=== PATIENT | female | born 1940 | race African-American/Black ===

== ENCOUNTER 2019-07-12 09:13 | Inpatient (IN) | payer OTHER, MEDICAID ==
[~2019-07-12] VITALS: Ht 170.2 cm; Wt 103.9 kg
[2019-07-12] MEDS ORDERED: IPRATROPIUM BROMIDE (0.02%) 0.5MG/2.5ML NEB HHN STA (09:41)
[2019-07-12] MEDS ORDERED: ALBUTEROL (0.083%) 2.5MG/3ML NEB HHN STA (09:41)
[2019-07-12] MEDS ORDERED: METHYLPREDNISOLONE SOD SUCC 125 MG/2 ML VIAL IV STA (09:41)
[2019-07-12 10:17] LABS: EOSINOPHILS % 1.5 % (0.0-5.0); HEMATOCRIT. 40.7 % (36.0-48.0); HEMOGLOBIN. 13.3 g/dL (12.0-16.0); MEAN CORPUSCULAR VOLUME 85.7 fL (81.0-99.0); MEAN PLATELET VOLUME 7.4 fl (7.4-10.4); NEUTROPHILS % 79.5 % (40.0-76.0); PLATELET 370 x1000/uL (130-400); RED BLOOD CELL COUNT 4.75 mill/uL (4.2-5.4); RED CELL DISTRIBUTION WIDTH 15.4 % (11.6-14.6)
[2019-07-12 10:27] LABS: CHLORIDE 108 mEq/L (98-107)
[2019-07-12] MEDS ORDERED: SODIUM CHLORIDE 0.9% 1,000 ML IV ONE (12:46)
[2019-07-12] MEDS ORDERED: MECLIZINE 25MG TABLET PO ONE (13:00)
[2019-07-12] MEDS ORDERED: SODIUM CHLORIDE 0.9% 1,000 ML IV SCH (13:47)
[2019-07-12] MEDS ORDERED: CLONIDINE 0.1MG TABLET PO PRN (14:00)
[2019-07-12] MEDS ORDERED: ACETAMINOPHEN 325MG TABLET PO PRN (14:00)
[2019-07-12] MEDS ORDERED: DIPHENHYDRAMINE 50MG/ML VIAL IV PRN (14:00)
[2019-07-12] MEDS ORDERED: HYDROCODONE/ACETAMINOPHEN 5/325MG TABLET PO PRN (14:00)
[2019-07-12 14:52] LABS: PHOSPHORUS 3.3 mg/dL (2.5-4.9)
[2019-07-12] MEDS: ONDANSETRON HCL 4MG/2ML INJ IV PRN (21:33)
[2019-07-13 07:49] LABS: BASOPHILS % 1.3 % (0.0-2.0); HEMATOCRIT. 37.2 % (36.0-48.0); HEMOGLOBIN. 12.2 g/dL (12.0-16.0); LYMPHOCYTES % 22.4 % (20.0-50.0); MEAN CORPUSCULAR HEMOGLOBIN 27.9 pg (28.0-32.0); MEAN CORPUSCULAR VOLUME 84.8 fL (81.0-99.0); MEAN PLATELET VOLUME 7.3 fl (7.4-10.4); MONOCYTES % 8.8 % (2.0-8.0); NEUTROPHILS % 64.5 % (40.0-76.0); PLATELET 349 x1000/uL (130-400); RED BLOOD CELL COUNT 4.39 mill/uL (4.2-5.4); RED CELL DISTRIBUTION WIDTH 15.2 % (11.6-14.6)
[2019-07-13 07:58] LABS: CHLORIDE 111 mEq/L (98-107)
[2019-07-13 08:07] LABS: LDL CHOLESTEROL 112 mg/dL (5-100)
[2019-07-13 08:09] LABS: HDL CHOLESTEROL 48 mg/dL (40-59)
[2019-07-13 09:49] LABS: BG BASE EXCESS 0.1 mmol/L (-2.0-2.0); BG CARBOXYHEMOGLOBIN 0.5 % (0.5-1.5); BG DEOXYHEMOGLOBIN 5.7 % (0.0-5.0); BG FRACTION INSPIRED OXYGEN 21; BG METHEMOGLOBIN 0.3 % (0.0-1.5); BG OXYGEN SATURATION 94.3 % (92.0-98.5); BG OXYHEMOGLOBIN 93.5 % (94.0-97.0); BG PCO2 36.6 mmHg (35.0-45.0); BG PH 7.435 (7.350-7.450); BG PO2 70.5 mmHg (75.0-100.0); BG SAMPLE SITE RIGHT RADIAL; BG TOTAL HEMOGLOBIN 13.4 g/dL (12.0-18.0); BG VENT MODE ROOM AIR
[2019-07-13] MEDS ORDERED: IPRATROPIUM/ALBUTEROL 0.5-3(2.5)MG/3ML NEB HHN PRN (15:00)
[2019-07-13] MEDS ORDERED: LORAZEPAM 2MG/ML CPJ IV PRN (15:00)
[2019-07-13] MEDS ORDERED: BISACODYL 10MG SUPP PR PRN (15:00)
[2019-07-13] MEDS ORDERED: MECLIZINE 25MG TABLET PO NR (15:15)
[2019-07-13 16:00] VITALS: BP_SYST 134; BP_DIAS 64; BP_DIAS 68
[2019-07-13] MEDS: METHYLPREDNISOLONE SOD SUCC 40 MG/ML VIAL IV SCH (16:58)
[2019-07-13] MEDS: FAMOTIDINE 20MG/2ML VIAL IV SCH (16:58)
[2019-07-13] MEDS: SODIUM CHLORIDE 0.45% 1,000 ML IV SCH (16:59)
[2019-07-13] MEDS ORDERED: POTASSIUM CHLORIDE INJ 40 MEQ in DEXT 5% WATER 500 ML IV NR (18:00)
[2019-07-13 19:10] LABS: PROTHROMBIN TIME 10.2 sec (9.6-11.0)
[2019-07-13 20:00] VITALS: BP_SYST 137; BP_SYST 164; BP_DIAS 67; BP_DIAS 86
[2019-07-13] MEDS ORDERED: AMLO5TAB4 PO (21:53)
[2019-07-13] MEDS ORDERED: ALBU6.7H11 INH (21:53)
[2019-07-13] MEDS ORDERED: METO-539 PO (21:53)
[2019-07-13] MEDS: MECLIZINE 25MG TABLET PO SCH (21:56)
[2019-07-13] MEDS: BUDESONIDE 0.5MG/2ML NEB HHN SCH (22:31)
[2019-07-13] MEDS: IPRATROPIUM/ALBUTEROL 0.5-3(2.5)MG/3ML NEB HHN SCH (22:31)
[2019-07-14] VITALS (7 sets, daily range): BP systolic 102–170; BP diastolic 55–95
[2019-07-14] MEDS ORDERED: DEXTROSE 50% WATER 50ML SYRINGE IV PRN (00:30)
[2019-07-14] MEDS: SODIUM CHLORIDE 0.45% 1,000 ML IV SCH ×3 (02:34→22:15)
[2019-07-14] MEDS: IPRATROPIUM/ALBUTEROL 0.5-3(2.5)MG/3ML NEB HHN SCH ×4 (02:40→22:27)
[2019-07-14] MEDS: MECLIZINE 25MG TABLET PO SCH ×3 (06:30→21:20)
[2019-07-14] MEDS: BLOOD SUGAR DIAGNOSTIC STRIP TEST SCH ×4 (06:31→21:16)
[2019-07-14] MEDS: INSULIN LISPRO 100 UNITS/ML SUBCUT SCH ×4 (07:24→21:00)
[2019-07-14] MEDS: METOPROLOL TARTRATE 50MG TABLET PO SCH ×2 (08:56→21:20)
[2019-07-14] MEDS: METHYLPREDNISOLONE SOD SUCC 40 MG/ML VIAL IV SCH (08:56)
[2019-07-14] MEDS: FAMOTIDINE 20MG/2ML VIAL IV SCH (08:56)
[2019-07-14] MEDS: AMLODIPINE 5MG TABLET PO SCH ×2 (08:56→21:19)
[2019-07-14] MEDS: ONDANSETRON HCL 4MG/2ML INJ IV PRN (09:11)
[2019-07-14 09:27] LABS: HEMATOCRIT 38.1 % (36.0-48.0); HEMOGLOBIN 12.6 g/dL (12.0-16.0); MEAN CORPUSCULAR HEMOGLOBIN 28.3 pg (28.0-32.0); MEAN CORPUSCULAR VOLUME 85.3 fL (81.0-99.0); PLATELET 360 x1000/uL (130-400); RED BLOOD CELL COUNT 4.46 mill/uL (4.2-5.4); RED CELL DISTRIBUTION WIDTH 15.4 % (11.6-14.6)
[2019-07-14 09:33] LABS: CHLORIDE 109 mEq/L (98-107)
[2019-07-14] MEDS: BUDESONIDE 0.5MG/2ML NEB HHN SCH ×2 (11:50→22:27)
[2019-07-15] VITALS: BP 142/66
[2019-07-15 04:00] VITALS: BP 136/65
[2019-07-15] MEDS: IPRATROPIUM/ALBUTEROL 0.5-3(2.5)MG/3ML NEB HHN SCH ×3 (04:30→12:52)
[2019-07-15] MEDS: MECLIZINE 25MG TABLET PO SCH ×2 (06:11→14:52)
[2019-07-15] MEDS: BLOOD SUGAR DIAGNOSTIC STRIP TEST SCH ×2 (07:40→12:20)
[2019-07-15] MEDS: INSULIN LISPRO 100 UNITS/ML SUBCUT SCH ×2 (08:10→12:20)
[2019-07-15] MEDS: SODIUM CHLORIDE 0.45% 1,000 ML IV SCH (08:15)
[2019-07-15 08:28] LABS: HEMATOCRIT 38.2 % (36.0-48.0); HEMOGLOBIN 12.4 g/dL (12.0-16.0); MEAN CORPUSCULAR HEMOGLOBIN 27.7 pg (28.0-32.0); MEAN CORPUSCULAR VOLUME 85.8 fL (81.0-99.0); PLATELET 368 x1000/uL (130-400); RED BLOOD CELL COUNT 4.45 mill/uL (4.2-5.4); RED CELL DISTRIBUTION WIDTH 15.3 % (11.6-14.6)
[2019-07-15 08:33] LABS: CHLORIDE 108 mEq/L (98-107)
[2019-07-15] MEDS: AMLODIPINE 5MG TABLET PO SCH (08:44)
[2019-07-15] MEDS: METOPROLOL TARTRATE 50MG TABLET PO SCH (08:44)
[2019-07-15] MEDS: FAMOTIDINE 20MG/2ML VIAL IV SCH (08:53)
[2019-07-15] MEDS: METHYLPREDNISOLONE SOD SUCC 40 MG/ML VIAL IV SCH (08:54)
[2019-07-15] MEDS: BUDESONIDE 0.5MG/2ML NEB HHN SCH (09:00)
[2019-07-15 12:00] VITALS: BP 154/90
[2019-07-15 16:00] VITALS: BP 112/69
[2019-07-15 18:24] VITALS: BP 115/71
[2019-07-15 20:00] VITALS: BP_SYST 127; BP_SYST 131; BP_SYST 141; BP_DIAS 56; BP_DIAS 67; BP_DIAS 72
[2019-07-15] MEDS ORDERED: FAMOTIDINE 40MG TABLET PO SCH (21:00)
== END 2019-07-15 20:46 | disposition hospice, home (50) | DRG 190 ==
LOC: ER 09:13 → 7WST 13:42 → SUPCPDRO 07-13 11:46 → ENRESERV 07-13 14:27
PROVIDERS: ADMIT Internal Medicine; ATTEND Internal Medicine
DX: J44.1 Chronic obstructive pulmonary disease with (acute) exacerbation (principal); I50.33 Acute on chronic diastolic (congestive) heart failure; I65.21 Occlusion and stenosis of right carotid artery; E87.6 Hypokalemia; E86.0 Dehydration; R09.02 Hypoxemia; M10.9 Gout, unspecified; I11.0 Hypertensive heart disease with heart failure; Z87.891 Personal history of nicotine dependence; Z88.8 Allergy status to other drugs, medicaments and biological substances; Z90.710 Acquired absence of both cervix and uterus; Z90.722 Acquired absence of ovaries, bilateral; R42 Dizziness and giddiness
CPT/HCPCS: 36415; 36600; 70551; 71045; 80048; 80053; 80061; 82375; 82805; 82962; 83735; 83880; 84100; 84443; 84484; 85025; 85027; 87804; 93005; 93306; 93880; 93970; 94640; 96374; 97162; 99285; C1893; J2405; J2920; J2930; J3480; J3490; J7030; J7060; J7626; J8597

== ENCOUNTER 2020-09-27 10:40 | Inpatient (IN) | payer MEDICARE ==
[~2020-09-27] VITALS: Ht 165.1 cm; Wt 111.2 kg
[~2020-09-27 10:40] MED LIST: ALBU6.7H11 INH; AMLO5TAB4 PO; METO-539 PO
[2020-09-27] MEDS ORDERED: METHYLPREDNISOLONE SOD SUCC 125 MG/2 ML VIAL IV STA (11:05)
[2020-09-27] MEDS ORDERED: IPRATROPIUM BROMIDE (0.02%) 0.5MG/2.5ML NEB HHN STA (11:05)
[2020-09-27] MEDS ORDERED: MAGNESIUM 2 G PREMIX 50 ML IV ONE (11:15)
[2020-09-27 11:27] LABS: BASOPHILS % 1.2 % (0.0-2.0); EOSINOPHILS % 4.2 % (0.0-5.0); HEMATOCRIT. 42.2 % (36.0-48.0); HEMOGLOBIN. 13.5 g/dL (12.0-16.0); LYMPHOCYTES % 41.3 % (20.0-50.0); MEAN CORPUSCULAR HEMOGLOBIN 27.7 pg (28.0-32.0); MEAN CORPUSCULAR VOLUME 86.4 fL (81.0-99.0); MEAN PLATELET VOLUME 7.5 fl (7.4-10.4); MONOCYTES % 9.6 % (2.0-8.0); NEUTROPHILS % 43.7 % (40.0-76.0); PLATELET 390 x1000/uL (130-400); RED BLOOD CELL COUNT 4.88 mill/uL (4.2-5.4); RED CELL DISTRIBUTION WIDTH 15.5 % (11.6-14.6)
[2020-09-27 11:30] LABS: CHLORIDE 107 mEq/L (98-107)
[2020-09-27] MEDS ORDERED: ALBUTEROL (0.083%) 2.5MG/3ML NEB HHN SCH (11:30)
[2020-09-27] MEDS ORDERED: LIDOCAINE HCL/EPINEPHRINE 1%-EPI 1:100,000 10 ML VIAL IJ ONE (12:00)
[2020-09-27] MEDS ORDERED: BACITRACIN ZINC OINT UDPKT TOP ONE (12:00)
[2020-09-27] MEDS ORDERED: CEFTRIAXONE 1 G PREMIX 50 ML IV ONE (13:15)
[2020-09-27] MEDS ORDERED: SODIUM CHLORIDE 0.9% 1,000 ML IV ONE (13:15)
[2020-09-27] MEDS ORDERED: AZITHROMYCIN 500 MG in DEXT 5% WATER 250 ML IV ONE (13:15)
[2020-09-27 13:42] LABS: PROTHROMBIN TIME 10.3 sec (9.6-11.0)
[2020-09-27] MEDS ORDERED: ACETAMINOPHEN 650MG/20.3ML UDC GT PRN (14:45)
[2020-09-27] MEDS ORDERED: NA PHOS,M-B/NA PHOS,DI-BA ENEMA 118ML PR PRN (14:45)
[2020-09-27] MEDS ORDERED: DOCUSATE SODIUM 100MG CAPSULE PO PRN (14:45)
[2020-09-27] MEDS ORDERED: ACETAMINOPHEN 650MG SUPP PR PRN (14:45)
[2020-09-27] MEDS ORDERED: LORAZEPAM 0.5MG TABLET PO PRN (14:45)
[2020-09-27] MEDS ORDERED: MAGNESIUM/ALUMINUM HYDROXIDE/SIMETHICONE 30ML UDC PO PRN (14:45)
[2020-09-27] MEDS ORDERED: GUAIFENESIN 200MG/10ML SUGAR FREE UDC PO PRN (14:45)
[2020-09-27] MEDS: PIPERACILLIN/TAZ 3.375G PREMIX 50 ML IV SCH ×2 (15:00→23:05)
[2020-09-27 15:13] LABS: BG BASE EXCESS -3.6 mmol/L (-2.0-2.0); BG CARBOXYHEMOGLOBIN 0.3 % (0.5-1.5); BG DEOXYHEMOGLOBIN 4.7 % (0.0-5.0); BG FRACTION INSPIRED OXYGEN 28; BG HCO3 ACT 22.1 mmol/L (22.0-26.0); BG METHEMOGLOBIN 0.1 % (0.0-1.5); BG OXYGEN SATURATION 95.3 % (92.0-98.5); BG OXYHEMOGLOBIN 94.9 % (94.0-97.0); BG PCO2 42.1 mmHg (35.0-45.0); BG PH 7.337 (7.350-7.450); BG PO2 78.8 mmHg (75.0-100.0); BG SAMPLE SITE RIGHT RADIAL; BG TOTAL HEMOGLOBIN 12.7 g/dL (12.0-18.0); BG VENT MODE NASAL CANNULA
[2020-09-27] MEDS: MORPHINE SULFATE 2 MG/ML CPJ (NOT FOR IM USE) IV PRN ×2 (15:14→19:46)
[2020-09-27] MEDS: ONDANSETRON HCL 4MG/2ML INJ IV PRN (15:15)
[2020-09-27] MEDS: FAMOTIDINE 20MG/2ML VIAL IV SCH (15:15)
[2020-09-27] MEDS: HYDROCODONE/ACETAMINOPHEN 5/325MG TABLET PO PRN ×2 (15:16→23:12)
[2020-09-27] MEDS: METHYLPREDNISOLONE SOD SUCC 40 MG/ML VIAL IV SCH (16:51)
[2020-09-27] MEDS: IPRATROPIUM/ALBUTEROL 0.5-3(2.5)MG/3ML NEB HHN SCH (20:10)
[2020-09-27 22:51] LABS: CREATINE KINASE 494 IU/L (26-192)
[2020-09-28] VITALS (82 sets, daily range): BP systolic 107–194; BP diastolic 16–141
[2020-09-28] MEDS: MORPHINE SULFATE 2 MG/ML CPJ (NOT FOR IM USE) IV PRN (00:04)
[2020-09-28] MEDS: METHYLPREDNISOLONE SOD SUCC 40 MG/ML VIAL IV SCH ×3 (00:06→15:53)
[2020-09-28] MEDS ORDERED: NOREPINEPHRINE 8MG/250ML PMX 250 ML IV PRN (03:00)
[2020-09-28] MEDS ORDERED: NOREPINEPHRINE 8 MG in DEXTROSE 5% WATER 250 ML IV PRN (03:15)
[2020-09-28 05:45] LABS: CHLORIDE 107 mEq/L (98-107)
[2020-09-28 05:53] LABS: HEMATOCRIT. 38.2 % (36.0-48.0); HEMOGLOBIN. 12.1 g/dL (12.0-16.0); MEAN CORPUSCULAR HEMOGLOBIN 27.2 pg (28.0-32.0); MEAN CORPUSCULAR VOLUME 86.2 fL (81.0-99.0); MEAN PLATELET VOLUME 7.5 fl (7.4-10.4); PLATELET 287 x1000/uL (130-400); RED BLOOD CELL COUNT 4.43 mill/uL (4.2-5.4); RED CELL DISTRIBUTION WIDTH 15.9 % (11.6-14.6)
[2020-09-28 05:57] LABS: CREATINE KINASE MB FRACTION 12.4 ng/mL (0.5-3.6); LDL CHOLESTEROL 107 mg/dL (5-100)
[2020-09-28 05:58] LABS: CREATINE KINASE 819 IU/L (26-192)
[2020-09-28 05:59] LABS: HDL CHOLESTEROL 69 mg/dL (40-59)
[2020-09-28 06:07] LABS: T4 FREE 1.02 ng/dL (0.76-1.46)
[2020-09-28] MEDS: CLONIDINE 0.1MG TABLET PO PRN ×2 (06:07→15:05)
[2020-09-28] MEDS: PIPERACILLIN/TAZOBACTAM 3.375 G in DEXT 5% WATER 100 ML IV SCH ×3 (06:08→17:43)
[2020-09-28] MEDS: ENOXAPARIN 30MG/0.3ML SYR SUBCUT SCH ×2 (08:31→21:44)
[2020-09-28] MEDS: FAMOTIDINE 20MG/2ML VIAL IV SCH (08:31)
[2020-09-28 10:17] LABS: PLATELET ESTIMATE NORMAL
[2020-09-28] MEDS ORDERED: AMLODIPINE 5MG TABLET PO SCH (13:00)
[2020-09-28] MEDS: SODIUM CHLORIDE 0.45% 1,000 ML IV SCH (15:55)
[2020-09-28] MEDS: AMLODIPINE 5MG TABLET PO SCH (16:56)
[2020-09-28] MEDS: IPRATROPIUM/ALBUTEROL 0.5-3(2.5)MG/3ML NEB HHN SCH (21:09)
[2020-09-28 22:31] LABS: CLARITY URINE CLOUDY (CLEAR); COLOR URINE YELLOW (YELLOW); KETONES URINE TRACE (NEGATIVE); LEUKOCYTE ESTERASE URINE NEGATIVE (NEGATIVE); NITRITE URINE NEGATIVE (NEGATIVE); OCCULT BLOOD URINE NEGATIVE (NEGATIVE); PH URINE 5.5 (4.5-8.0); PROTEIN URINE NEGATIVE (NEGATIVE); SPECIFIC GRAVITY URINE 1.024 (1.005-1.030); UROBILINOGEN URINE 0.2 E.U./dL (0.2-1.0)
[2020-09-28] MEDS: HYDRALAZINE HCL 50MG TABLET PO SCH (22:33)
[2020-09-29] VITALS (12 sets, daily range): BP systolic 126–169; BP diastolic 66–115
[2020-09-29] MEDS: PIPERACILLIN/TAZOBACTAM 3.375 G in DEXT 5% WATER 100 ML IV SCH ×4 (00:47→17:36)
[2020-09-29] MEDS: METHYLPREDNISOLONE SOD SUCC 40 MG/ML VIAL IV SCH ×3 (00:47→21:01)
[2020-09-29] MEDS: HYDROCODONE/ACETAMINOPHEN 5/325MG TABLET PO PRN ×2 (01:22→21:01)
[2020-09-29] MEDS: IPRATROPIUM/ALBUTEROL 0.5-3(2.5)MG/3ML NEB HHN SCH ×4 (03:49→21:20)
[2020-09-29] MEDS: HYDRALAZINE HCL 50MG TABLET PO SCH ×3 (05:23→22:18)
[2020-09-29 06:23] LABS: HEMATOCRIT. 35.8 % (36.0-48.0); HEMOGLOBIN. 11.6 g/dL (12.0-16.0); MEAN CORPUSCULAR HEMOGLOBIN 27.5 pg (28.0-32.0); MEAN CORPUSCULAR VOLUME 84.8 fL (81.0-99.0); MEAN PLATELET VOLUME 7.8 fl (7.4-10.4); PLATELET 285 x1000/uL (130-400); RED BLOOD CELL COUNT 4.22 mill/uL (4.2-5.4); RED CELL DISTRIBUTION WIDTH 15.9 % (11.6-14.6)
[2020-09-29 06:26] LABS: CHLORIDE 106 mEq/L (98-107)
[2020-09-29] MEDS: AMLODIPINE 5MG TABLET PO SCH ×2 (10:17→16:46)
[2020-09-29] MEDS: ENOXAPARIN 30MG/0.3ML SYR SUBCUT SCH ×2 (10:17→21:02)
[2020-09-29] MEDS: FAMOTIDINE 20MG/2ML VIAL IV SCH (10:17)
[2020-09-29] MEDS: SODIUM CHLORIDE 0.45% 1,000 ML IV SCH (11:59)
[2020-09-29 17:04] LABS: PLATELET ESTIMATE NORMAL
[2020-09-30] VITALS (12 sets, daily range): BP systolic 133–164; BP diastolic 72–92
[2020-09-30] MEDS: IPRATROPIUM/ALBUTEROL 0.5-3(2.5)MG/3ML NEB NEB PRN (00:18)
[2020-09-30] MEDS: PIPERACILLIN/TAZOBACTAM 3.375 G in DEXT 5% WATER 100 ML IV SCH ×5 (01:14→23:26)
[2020-09-30] MEDS: IPRATROPIUM/ALBUTEROL 0.5-3(2.5)MG/3ML NEB HHN SCH ×3 (03:36→20:28)
[2020-09-30 06:09] LABS: HEMOGLOBIN. 12.2 g/dL (12.0-16.0); MEAN CORPUSCULAR HEMOGLOBIN 27.8 pg (28.0-32.0); MEAN CORPUSCULAR VOLUME 84.4 fL (81.0-99.0); MEAN PLATELET VOLUME 7.6 fl (7.4-10.4); PLATELET 309 x1000/uL (130-400); RED BLOOD CELL COUNT 4.38 mill/uL (4.2-5.4); RED CELL DISTRIBUTION WIDTH 15.4 % (11.6-14.6)
[2020-09-30 06:11] LABS: CHLORIDE 105 mEq/L (98-107)
[2020-09-30] MEDS: HYDRALAZINE HCL 50MG TABLET PO SCH (06:29)
[2020-09-30] MEDS: HYDROCODONE/ACETAMINOPHEN 5/325MG TABLET PO PRN ×2 (06:29→11:23)
[2020-09-30] MEDS: FAMOTIDINE 20MG/2ML VIAL IV SCH (08:25)
[2020-09-30] MEDS: ENOXAPARIN 30MG/0.3ML SYR SUBCUT SCH ×2 (08:25→20:07)
[2020-09-30] MEDS: SODIUM CHLORIDE 0.45% 1,000 ML IV SCH (08:25)
[2020-09-30] MEDS: AMLODIPINE 5MG TABLET PO SCH ×2 (08:25→18:00)
[2020-09-30] MEDS: METHYLPREDNISOLONE SOD SUCC 40 MG/ML VIAL IV SCH ×2 (08:25→20:07)
[2020-09-30] MEDS ORDERED: POTASSIUM CHLORIDE 20MEQ TABLET SR PO NR (10:30)
[2020-09-30 13:07] LABS: PLATELET ESTIMATE NORMAL
[2020-09-30] MEDS: HYDRALAZINE HCL 100MG TABLET PO SCH ×2 (14:44→21:52)
[2020-09-30] MEDS: DIPHENHYDRAMINE 50MG/ML VIAL IV PRN ×2 (16:28→20:08)
[2020-10-01] VITALS (12 sets, daily range): BP systolic 130–177; BP diastolic 59–136
[2020-10-01] MEDS: HYDROCODONE/ACETAMINOPHEN 5/325MG TABLET PO PRN (01:49)
[2020-10-01] MEDS: IPRATROPIUM/ALBUTEROL 0.5-3(2.5)MG/3ML NEB HHN SCH ×4 (02:00→20:39)
[2020-10-01] MEDS: PIPERACILLIN/TAZOBACTAM 3.375 G in DEXT 5% WATER 100 ML IV SCH ×4 (05:41→23:56)
[2020-10-01] MEDS: HYDRALAZINE HCL 100MG TABLET PO SCH ×3 (05:42→22:00)
[2020-10-01 06:36] LABS: HEMOGLOBIN. 12.7 g/dL (12.0-16.0); MEAN CORPUSCULAR HEMOGLOBIN 27.6 pg (28.0-32.0); MEAN CORPUSCULAR VOLUME 85.1 fL (81.0-99.0); MEAN PLATELET VOLUME 7.5 fl (7.4-10.4); PLATELET 359 x1000/uL (130-400); RED BLOOD CELL COUNT 4.59 mill/uL (4.2-5.4); RED CELL DISTRIBUTION WIDTH 15.6 % (11.6-14.6)
[2020-10-01 06:58] LABS: CHLORIDE 106 mEq/L (98-107)
[2020-10-01] MEDS: DIPHENHYDRAMINE 50MG/ML VIAL IV PRN ×3 (07:59→20:03)
[2020-10-01] MEDS ORDERED: LIDOCAINE HCL/PF 1% 2ML VIAL ONE (09:00)
[2020-10-01] MEDS: FAMOTIDINE 20MG/2ML VIAL IV SCH (09:26)
[2020-10-01] MEDS: AMLODIPINE 5MG TABLET PO SCH ×2 (09:26→18:09)
[2020-10-01] MEDS: ENOXAPARIN 30MG/0.3ML SYR SUBCUT SCH ×2 (09:26→21:58)
[2020-10-01] MEDS: METHYLPREDNISOLONE SOD SUCC 40 MG/ML VIAL IV SCH ×2 (09:26→21:57)
[2020-10-01 11:58] LABS: NUCLEATED RED BLOOD CELLS 1 /100 WBC; PLATELET ESTIMATE NORMAL
[2020-10-01] MEDS ORDERED: IOHEXOL-350 100 ML BOTTLE ONE (12:29)
[2020-10-01] MEDS ORDERED: MORPHINE SULFATE 4 MG/ML CPJ (NOT FOR IM USE) IV PRN (15:15)
[2020-10-01] MEDS ORDERED: MIDAZOLAM HCL 2 MG/2 ML VIAL IV PRN (15:15)
[2020-10-01 16:35] LABS: BG BASE EXCESS 1.3 mmol/L (-2.0-2.0); BG CARBOXYHEMOGLOBIN 0.4 % (0.5-1.5); BG DEOXYHEMOGLOBIN 5.2 % (0.0-5.0); BG HCO3 ACT 24.8 mmol/L (22.0-26.0); BG METHEMOGLOBIN 0.3 % (0.0-1.5); BG OXYGEN SATURATION 94.8 % (92.0-98.5); BG OXYHEMOGLOBIN 94.1 % (94.0-97.0); BG PCO2 35.7 mmHg (35.0-45.0); BG PH 7.459 (7.350-7.450); BG PO2 70.6 mmHg (75.0-100.0); BG SAMPLE SITE RIGHT RADIAL; BG TOTAL HEMOGLOBIN 13.5 g/dL (12.0-18.0); BG VENT MODE NASAL CANNULA
[2020-10-01] MEDS ORDERED: MIDAZOLAM HCL 2 MG/2 ML VIAL ONE (20:23)
[2020-10-01] MEDS ORDERED: LIDOCAINE HCL/EPINEPHRINE 1%-EPI 1:100,000 20 ML VIAL INFIL NR (20:30)
[2020-10-01] MEDS: ONDANSETRON HCL 4MG/2ML INJ IV PRN (21:58)
[2020-10-01] MEDS: MORPHINE SULFATE 2 MG/ML CPJ (NOT FOR IM USE) IV PRN (21:59)
[2020-10-02] VITALS (46 sets, daily range): BP systolic 113–199; BP diastolic 58–169
[2020-10-02] MEDS: IPRATROPIUM/ALBUTEROL 0.5-3(2.5)MG/3ML NEB HHN SCH ×5 (01:19→20:38)
[2020-10-02] MEDS: PIPERACILLIN/TAZOBACTAM 3.375 G in DEXT 5% WATER 100 ML IV SCH ×3 (05:05→16:37)
[2020-10-02] MEDS: HYDRALAZINE HCL 100MG TABLET PO SCH (05:17)
[2020-10-02 06:19] LABS: HEMATOCRIT. 39.8 % (36.0-48.0); MEAN CORPUSCULAR HEMOGLOBIN 27.9 pg (28.0-32.0); MEAN CORPUSCULAR VOLUME 85.7 fL (81.0-99.0); MEAN PLATELET VOLUME 7.5 fl (7.4-10.4); PLATELET 366 x1000/uL (130-400); RED BLOOD CELL COUNT 4.64 mill/uL (4.2-5.4)
[2020-10-02 07:40] LABS: PLATELET ESTIMATE NORMAL
[2020-10-02] MEDS: METHYLPREDNISOLONE SOD SUCC 40 MG/ML VIAL IV SCH ×2 (08:30→20:12)
[2020-10-02] MEDS: FAMOTIDINE 20MG/2ML VIAL IV SCH (08:31)
[2020-10-02] MEDS: HYDROCODONE/ACETAMINOPHEN 5/325MG TABLET PO PRN (08:31)
[2020-10-02] MEDS: AMLODIPINE 5MG TABLET PO SCH ×2 (08:31→17:00)
[2020-10-02] MEDS: ENOXAPARIN 30MG/0.3ML SYR SUBCUT SCH ×2 (09:00→20:13)
[2020-10-02 09:20] LABS: BG BASE EXCESS 1.1 mmol/L (-2.0-2.0); BG CARBOXYHEMOGLOBIN 0.4 % (0.5-1.5); BG DEOXYHEMOGLOBIN 4.1 % (0.0-5.0); BG FRACTION INSPIRED OXYGEN 36; BG HCO3 ACT 25.4 mmol/L (22.0-26.0); BG OXYGEN SATURATION 95.9 % (92.0-98.5); BG OXYHEMOGLOBIN 95.5 % (94.0-97.0); BG PCO2 39.4 mmHg (35.0-45.0); BG PH 7.427 (7.350-7.450); BG PO2 81.1 mmHg (75.0-100.0); BG SAMPLE SITE RIGHT RADIAL; BG TOTAL HEMOGLOBIN 13.4 g/dL (12.0-18.0); BG VENT MODE NASAL CANNULA
[2020-10-02 13:18] LABS: BG BASE EXCESS 1.2 mmol/L (-2.0-2.0); BG CARBOXYHEMOGLOBIN 0.3 % (0.5-1.5); BG DEOXYHEMOGLOBIN 0.6 % (0.0-5.0); BG FRACTION INSPIRED OXYGEN 100; BG HCO3 ACT 24.9 mmol/L (22.0-26.0); BG METHEMOGLOBIN 0.3 % (0.0-1.5); BG OXYGEN SATURATION 99.4 % (92.0-98.5); BG OXYHEMOGLOBIN 98.8 % (94.0-97.0); BG PCO2 36.6 mmHg (35.0-45.0); BG PO2 300.4 mmHg (75.0-100.0); BG SAMPLE SITE RIGHT RADIAL; BG TOTAL HEMOGLOBIN 13.7 g/dL (12.0-18.0); BG VENT MODE MASK - NRB
[2020-10-02] MEDS ORDERED: LIDOCAINE HCL 1% 20ML VIAL (Pyxis) INJ ONE (14:51)
[2020-10-02] MEDS ORDERED: HYDRALAZINE 20MG/ML VIAL IV SCH (17:00)
[2020-10-02] MEDS: HYDRALAZINE 20MG/ML VIAL IV SCH ×2 (17:40→22:09)
[2020-10-02] MEDS: IPRATROPIUM/ALBUTEROL 0.5-3(2.5)MG/3ML NEB NEB PRN (18:30)
[2020-10-02] MEDS: MORPHINE SULFATE 2 MG/ML CPJ (NOT FOR IM USE) IV PRN (21:17)
[2020-10-02] MEDS ORDERED: DILTIAZEM HCL 5MG/ML 5ML VIAL IV NR (21:45)
[2020-10-03] VITALS (91 sets, daily range): BP systolic 62–230; BP diastolic 39–150
[2020-10-03] MEDS: HYDRALAZINE 20MG/ML VIAL IV SCH ×4 (01:58→17:35)
[2020-10-03] MEDS: IPRATROPIUM/ALBUTEROL 0.5-3(2.5)MG/3ML NEB HHN SCH ×6 (02:50→20:18)
[2020-10-03 05:54] LABS: CHLORIDE 107 mEq/L (98-107)
[2020-10-03 05:56] LABS: HEMATOCRIT. 42.1 % (36.0-48.0); HEMOGLOBIN. 13.2 g/dL (12.0-16.0); MEAN CORPUSCULAR HEMOGLOBIN 26.8 pg (28.0-32.0); MEAN CORPUSCULAR VOLUME 85.5 fL (81.0-99.0); MEAN PLATELET VOLUME 7.6 fl (7.4-10.4); PLATELET 346 x1000/uL (130-400); RED BLOOD CELL COUNT 4.93 mill/uL (4.2-5.4); RED CELL DISTRIBUTION WIDTH 16.4 % (11.6-14.6)
[2020-10-03] MEDS ORDERED: ETOMIDATE 2MG/ML 10ML VIAL IV ONE (07:30)
[2020-10-03] MEDS ORDERED: SUCCINYLCHOLINE CHLORIDE 200MG/10ML IV ONE (07:30)
[2020-10-03 08:32] LABS: BG BASE EXCESS 0.4 mmol/L (-2.0-2.0); BG CARBOXYHEMOGLOBIN 0.4 % (0.5-1.5); BG DEOXYHEMOGLOBIN 4.7 % (0.0-5.0); BG FRACTION INSPIRED OXYGEN 44; BG HCO3 ACT 23.2 mmol/L (22.0-26.0); BG METHEMOGLOBIN 0.1 % (0.0-1.5); BG OXYGEN SATURATION 95.3 % (92.0-98.5); BG OXYHEMOGLOBIN 94.8 % (94.0-97.0); BG PCO2 32.3 mmHg (35.0-45.0); BG PH 7.475 (7.350-7.450); BG PO2 72.9 mmHg (75.0-100.0); BG SAMPLE SITE RIGHT RADIAL; BG TOTAL HEMOGLOBIN 13.7 g/dL (12.0-18.0); BG VENT MODE NASAL CANNULA
[2020-10-03] MEDS ORDERED: DILTIAZEM HCL 5MG/ML 5ML VIAL IV SCH (09:00)
[2020-10-03] MEDS: AMLODIPINE 5MG TABLET PO SCH ×2 (09:00→16:29)
[2020-10-03] MEDS: METHYLPREDNISOLONE SOD SUCC 40 MG/ML VIAL IV SCH ×2 (09:07→21:51)
[2020-10-03] MEDS: ENOXAPARIN 30MG/0.3ML SYR SUBCUT SCH ×2 (09:07→21:00)
[2020-10-03] MEDS: FAMOTIDINE 20MG/2ML VIAL IV SCH (09:07)
[2020-10-03] MEDS: MORPHINE SULFATE 2 MG/ML CPJ (NOT FOR IM USE) IV PRN (11:54)
[2020-10-03 12:18] LABS: PLATELET ESTIMATE NORMAL
[2020-10-03] MEDS: DILTIAZEM HCL 125 MG in DEXT 5% WATER 100 ML IV SCH (12:32)
[2020-10-03] MEDS: FLUTICASONE PROPIONATE 50MCG/SPRAY BOTTLE BOTHNSTRLS SCH ×2 (12:42→22:21)
[2020-10-03] MEDS ORDERED: PHENOL/SODIUM PHENOLATE 1.4% SRPAY 177ML MM PRN (13:00)
[2020-10-03 13:20] LABS: BG BASE EXCESS -0.9 mmol/L (-2.0-2.0); BG CARBOXYHEMOGLOBIN 0.2 % (0.5-1.5); BG DEOXYHEMOGLOBIN 1.2 % (0.0-5.0); BG FRACTION INSPIRED OXYGEN 100; BG HCO3 ACT 21.9 mmol/L (22.0-26.0); BG METHEMOGLOBIN 0.2 % (0.0-1.5); BG OXYGEN SATURATION 98.8 % (92.0-98.5); BG OXYHEMOGLOBIN 98.4 % (94.0-97.0); BG PCO2 31.4 mmHg (35.0-45.0); BG PH 7.462 (7.350-7.450); BG PO2 148.5 mmHg (75.0-100.0); BG SAMPLE SITE LEFT RADIAL; BG TOTAL HEMOGLOBIN 14.1 g/dL (12.0-18.0); BG VENT MODE MASK - NRB
[2020-10-03] MEDS: PROPOFOL 10MG/ML 100ML 100 ML IV PRN ×2 (14:56→16:33)
[2020-10-03 15:30] LABS: BG BASE EXCESS -0.4 mmol/L (-2.0-2.0); BG CARBOXYHEMOGLOBIN 0.2 % (0.5-1.5); BG DEOXYHEMOGLOBIN 4.3 % (0.0-5.0); BG FRACTION INSPIRED OXYGEN 50; BG HCO3 ACT 24.1 mmol/L (22.0-26.0); BG METHEMOGLOBIN 0.1 % (0.0-1.5); BG OXYGEN SATURATION 95.7 % (92.0-98.5); BG OXYHEMOGLOBIN 95.4 % (94.0-97.0); BG PCO2 39.4 mmHg (35.0-45.0); BG PH 7.405 (7.350-7.450); BG PO2 81.3 mmHg (75.0-100.0); BG SAMPLE SITE RIGHT RADIAL; BG TOTAL HEMOGLOBIN 13.3 g/dL (12.0-18.0); BG VENT MODE VENT - AC
[2020-10-03] MEDS: MIDAZOLAM HCL 100 MG in SODIUM CHLORIDE 0.9% 80 ML IV PRN (15:31)
[2020-10-03] MEDS: FENTANYL CITRATE/PF 1,000 MCG in SODIUM CHLORIDE 0.9% 80 ML IV PRN (15:52)
[2020-10-04] VITALS (72 sets, daily range): BP systolic 84–165; BP diastolic 46–103
[2020-10-04] MEDS: IPRATROPIUM/ALBUTEROL 0.5-3(2.5)MG/3ML NEB HHN SCH ×4 (00:41→20:46)
[2020-10-04] MEDS ORDERED: SODIUM CHLORIDE 0.9% 250 ML IV NR (02:45)
[2020-10-04] MEDS: HYDRALAZINE 20MG/ML VIAL IV SCH ×4 (06:00→17:52)
[2020-10-04 06:51] LABS: HEMATOCRIT. 39.1 % (36.0-48.0); HEMOGLOBIN. 12.5 g/dL (12.0-16.0); MEAN CORPUSCULAR HEMOGLOBIN 27.6 pg (28.0-32.0); MEAN CORPUSCULAR VOLUME 86.2 fL (81.0-99.0); MEAN PLATELET VOLUME 7.8 fl (7.4-10.4); PLATELET 295 x1000/uL (130-400); RED BLOOD CELL COUNT 4.54 mill/uL (4.2-5.4); RED CELL DISTRIBUTION WIDTH 16.5 % (11.6-14.6)
[2020-10-04] MEDS: MIDAZOLAM HCL 100 MG in SODIUM CHLORIDE 0.9% 80 ML IV PRN (08:20)
[2020-10-04 08:46] LABS: BG BASE EXCESS 0.7 mmol/L (-2.0-2.0); BG CARBOXYHEMOGLOBIN 0.3 % (0.5-1.5); BG DEOXYHEMOGLOBIN 2.3 % (0.0-5.0); BG FRACTION INSPIRED OXYGEN 50; BG HCO3 ACT 24.7 mmol/L (22.0-26.0); BG METHEMOGLOBIN 0.3 % (0.0-1.5); BG OXYGEN SATURATION 97.7 % (92.0-98.5); BG OXYHEMOGLOBIN 97.1 % (94.0-97.0); BG PCO2 37.5 mmHg (35.0-45.0); BG PH 7.437 (7.350-7.450); BG PO2 107.8 mmHg (75.0-100.0); BG SAMPLE SITE RIGHT RADIAL; BG TOTAL HEMOGLOBIN 12.5 g/dL (12.0-18.0); BG TOTAL RESPIRATORY RATE 16 b/min; BG VENT MODE VENT - AC
[2020-10-04] MEDS: FAMOTIDINE 20MG/2ML VIAL IV SCH (10:39)
[2020-10-04] MEDS: AMLODIPINE 5MG TABLET PO SCH ×2 (10:39→17:52)
[2020-10-04] MEDS: METHYLPREDNISOLONE SOD SUCC 40 MG/ML VIAL IV SCH ×2 (10:39→21:23)
[2020-10-04] MEDS: ENOXAPARIN 30MG/0.3ML SYR SUBCUT SCH (10:39)
[2020-10-04] MEDS: FLUTICASONE PROPIONATE 50MCG/SPRAY BOTTLE BOTHNSTRLS SCH (10:41)
[2020-10-04 10:44] LABS: PLATELET ESTIMATE NORMAL
[2020-10-04] MEDS: DILTIAZEM HCL 125 MG in DEXT 5% WATER 100 ML IV SCH ×2 (13:00→18:47)
[2020-10-04] MEDS: SODIUM CHLORIDE 0.45% 1,000 ML IV SCH (13:23)
[2020-10-04] MEDS: FENTANYL CITRATE/PF 1,000 MCG in SODIUM CHLORIDE 0.9% 80 ML IV PRN (20:18)
[2020-10-04] MEDS: DILTIAZEM HCL 60MG TABLET PO SCH (21:23)
[2020-10-05] VITALS (91 sets, daily range): BP systolic 81–158; BP diastolic 42–81
[2020-10-05] MEDS: DILTIAZEM HCL 60MG TABLET PO SCH ×3 (01:30→10:24)
[2020-10-05] MEDS: MIDAZOLAM HCL 100 MG in SODIUM CHLORIDE 0.9% 80 ML IV PRN (02:07)
[2020-10-05] MEDS: IPRATROPIUM/ALBUTEROL 0.5-3(2.5)MG/3ML NEB NEB PRN (02:15)
[2020-10-05] MEDS: FENTANYL CITRATE 2,500 MCG in SODIUM CHLORIDE 0.9% 200 ML IV PRN (04:39)
[2020-10-05] MEDS: SODIUM CHLORIDE 0.45% 1,000 ML IV SCH ×2 (04:46→16:12)
[2020-10-05] MEDS: HYDRALAZINE 20MG/ML VIAL IV SCH ×4 (06:00→17:31)
[2020-10-05 06:42] LABS: HEMATOCRIT. 36.2 % (36.0-48.0); HEMOGLOBIN. 11.4 g/dL (12.0-16.0); MEAN CORPUSCULAR HEMOGLOBIN 27.1 pg (28.0-32.0); MEAN CORPUSCULAR VOLUME 85.7 fL (81.0-99.0); MEAN PLATELET VOLUME 7.7 fl (7.4-10.4); PLATELET 266 x1000/uL (130-400); RED BLOOD CELL COUNT 4.22 mill/uL (4.2-5.4); RED CELL DISTRIBUTION WIDTH 16.6 % (11.6-14.6)
[2020-10-05] MEDS: IPRATROPIUM/ALBUTEROL 0.5-3(2.5)MG/3ML NEB HHN SCH ×3 (07:48→20:09)
[2020-10-05 09:17] LABS: BG CARBOXYHEMOGLOBIN 0.3 % (0.5-1.5); BG DEOXYHEMOGLOBIN 1.7 % (0.0-5.0); BG FRACTION INSPIRED OXYGEN 40; BG HCO3 ACT 23.5 mmol/L (22.0-26.0); BG OXYGEN SATURATION 98.3 % (92.0-98.5); BG PCO2 42.7 mmHg (35.0-45.0); BG PH 7.358 (7.350-7.450); BG PO2 135.7 mmHg (75.0-100.0); BG SAMPLE SITE RIGHT RADIAL; BG TOTAL HEMOGLOBIN 12.8 g/dL (12.0-18.0); BG VENT MODE VENT - AC
[2020-10-05] MEDS: METHYLPREDNISOLONE SOD SUCC 40 MG/ML VIAL IV SCH ×2 (09:24→21:37)
[2020-10-05] MEDS: FAMOTIDINE 20MG/2ML VIAL IV SCH (09:24)
[2020-10-05] MEDS: ENOXAPARIN 40MG/0.4ML SYR SUBCUT SCH (09:24)
[2020-10-05 11:43] LABS: PLATELET ESTIMATE NORMAL
[2020-10-05] MEDS: DILTIAZEM HCL 30MG TABLET PO SCH ×2 (16:12→21:38)
[2020-10-05] MEDS ORDERED: DILTIAZEM HCL 30MG TABLET PO SCH (16:30)
[2020-10-05 17:32] LABS: BG BASE EXCESS -1.7 mmol/L (-2.0-2.0); BG CARBOXYHEMOGLOBIN 0.3 % (0.5-1.5); BG DEOXYHEMOGLOBIN 6.5 % (0.0-5.0); BG FRACTION INSPIRED OXYGEN 40; BG HCO3 ACT 23.9 mmol/L (22.0-26.0); BG METHEMOGLOBIN 0.1 % (0.0-1.5); BG OXYGEN SATURATION 93.5 % (92.0-98.5); BG OXYHEMOGLOBIN 93.1 % (94.0-97.0); BG PCO2 43.9 mmHg (35.0-45.0); BG PH 7.354 (7.350-7.450); BG PO2 71.1 mmHg (75.0-100.0); BG SAMPLE SITE LEFT RADIAL; BG TOTAL HEMOGLOBIN 12.9 g/dL (12.0-18.0); BG TOTAL RESPIRATORY RATE 14 b/min; BG VENT MODE VENT - CPAP
[2020-10-06] VITALS (92 sets, daily range): BP systolic 74–160; BP diastolic 47–89
[2020-10-06] MEDS: IPRATROPIUM/ALBUTEROL 0.5-3(2.5)MG/3ML NEB HHN SCH ×3 (01:47→20:20)
[2020-10-06] MEDS: SODIUM CHLORIDE 0.45% 1,000 ML IV SCH ×2 (04:00→17:10)
[2020-10-06] MEDS: DILTIAZEM HCL 30MG TABLET PO SCH ×3 (05:22→21:21)
[2020-10-06 05:43] LABS: HEMATOCRIT. 37.5 % (36.0-48.0); HEMOGLOBIN. 11.7 g/dL (12.0-16.0); MEAN CORPUSCULAR HEMOGLOBIN 26.9 pg (28.0-32.0); MEAN CORPUSCULAR VOLUME 86.1 fL (81.0-99.0); MEAN PLATELET VOLUME 7.7 fl (7.4-10.4); PLATELET 268 x1000/uL (130-400); RED BLOOD CELL COUNT 4.36 mill/uL (4.2-5.4); RED CELL DISTRIBUTION WIDTH 16.5 % (11.6-14.6)
[2020-10-06] MEDS: HYDRALAZINE 20MG/ML VIAL IV SCH ×3 (06:46→11:25)
[2020-10-06] MEDS: FAMOTIDINE 20MG/2ML VIAL IV SCH (08:21)
[2020-10-06] MEDS: METHYLPREDNISOLONE SOD SUCC 40 MG/ML VIAL IV SCH ×2 (08:21→21:22)
[2020-10-06] MEDS: ENOXAPARIN 40MG/0.4ML SYR SUBCUT SCH (08:21)
[2020-10-06 09:56] LABS: PLATELET ESTIMATE NORMAL
[2020-10-06] MEDS: FENTANYL CITRATE 2,500 MCG in SODIUM CHLORIDE 0.9% 200 ML IV PRN (10:01)
[2020-10-06] MEDS: MIDAZOLAM HCL 100 MG in SODIUM CHLORIDE 0.9% 80 ML IV PRN ×2 (21:24)
[2020-10-07] VITALS (85 sets, daily range): BP systolic 29–186; BP diastolic 22–124
[2020-10-07] MEDS: IPRATROPIUM/ALBUTEROL 0.5-3(2.5)MG/3ML NEB HHN SCH ×4 (02:03→21:04)
[2020-10-07] MEDS: DILTIAZEM HCL 30MG TABLET PO SCH ×3 (05:00→21:02)
[2020-10-07] MEDS: SODIUM CHLORIDE 0.45% 1,000 ML IV SCH ×3 (05:03→23:34)
[2020-10-07 07:26] LABS: HEMATOCRIT. 37.4 % (36.0-48.0); HEMOGLOBIN. 11.9 g/dL (12.0-16.0); MEAN CORPUSCULAR HEMOGLOBIN 27.4 pg (28.0-32.0); MEAN CORPUSCULAR VOLUME 86.3 fL (81.0-99.0); MEAN PLATELET VOLUME 7.9 fl (7.4-10.4); PLATELET 284 x1000/uL (130-400); RED BLOOD CELL COUNT 4.34 mill/uL (4.2-5.4); RED CELL DISTRIBUTION WIDTH 16.3 % (11.6-14.6)
[2020-10-07] MEDS: METHYLPREDNISOLONE SOD SUCC 40 MG/ML VIAL IV SCH ×2 (08:16→21:02)
[2020-10-07] MEDS: FAMOTIDINE 20MG/2ML VIAL IV SCH (08:16)
[2020-10-07] MEDS: ENOXAPARIN 40MG/0.4ML SYR SUBCUT SCH (08:17)
[2020-10-07 08:54] LABS: PLATELET ESTIMATE NORMAL
[2020-10-07 08:55] LABS: BG BASE EXCESS -0.8 mmol/L (-2.0-2.0); BG CARBOXYHEMOGLOBIN 0.4 % (0.5-1.5); BG DEOXYHEMOGLOBIN 2.8 % (0.0-5.0); BG FRACTION INSPIRED OXYGEN 40; BG HCO3 ACT 24.3 mmol/L (22.0-26.0); BG METHEMOGLOBIN 0.1 % (0.0-1.5); BG OXYGEN SATURATION 97.2 % (92.0-98.5); BG OXYHEMOGLOBIN 96.7 % (94.0-97.0); BG PCO2 41.6 mmHg (35.0-45.0); BG PH 7.384 (7.350-7.450); BG PO2 94.5 mmHg (75.0-100.0); BG SAMPLE SITE RIGHT RADIAL; BG TOTAL HEMOGLOBIN 12.9 g/dL (12.0-18.0); BG VENT MODE VENT - AC
[2020-10-07 10:03] LABS: BG BASE EXCESS -1.6 mmol/L (-2.0-2.0); BG CARBOXYHEMOGLOBIN 0.1 % (0.5-1.5); BG DEOXYHEMOGLOBIN 3.9 % (0.0-5.0); BG FRACTION INSPIRED OXYGEN 40; BG HCO3 ACT 22.9 mmol/L (22.0-26.0); BG METHEMOGLOBIN 0.1 % (0.0-1.5); BG OXYGEN SATURATION 96.1 % (92.0-98.5); BG OXYHEMOGLOBIN 95.9 % (94.0-97.0); BG PCO2 37.8 mmHg (35.0-45.0); BG PO2 84.1 mmHg (75.0-100.0); BG SAMPLE SITE LEFT RADIAL; BG TOTAL HEMOGLOBIN 12.7 g/dL (12.0-18.0); BG VENT MODE VENT - CPAP
[2020-10-07] MEDS: HYDRALAZINE 20MG/ML VIAL IV PRN (10:40)
[2020-10-07 12:10] LABS: BG CARBOXYHEMOGLOBIN 0.3 % (0.5-1.5); BG DEOXYHEMOGLOBIN 1.6 % (0.0-5.0); BG FRACTION INSPIRED OXYGEN 99.9; BG HCO3 ACT 24.2 mmol/L (22.0-26.0); BG METHEMOGLOBIN 0.2 % (0.0-1.5); BG OXYGEN SATURATION 98.4 % (92.0-98.5); BG OXYHEMOGLOBIN 97.9 % (94.0-97.0); BG PCO2 37.6 mmHg (35.0-45.0); BG PH 7.426 (7.350-7.450); BG PO2 131.4 mmHg (75.0-100.0); BG SAMPLE SITE RIGHT RADIAL; BG TOTAL HEMOGLOBIN 13.1 g/dL (12.0-18.0); BG VENT MODE MASK - NRB
[2020-10-07] MEDS ORDERED: LORAZEPAM 2MG/ML CPJ IV PRN (12:45)
[2020-10-07 15:19] LABS: BG BASE EXCESS -1.2 mmol/L (-2.0-2.0); BG CARBOXYHEMOGLOBIN 0.3 % (0.5-1.5); BG FRACTION INSPIRED OXYGEN 100; BG HCO3 ACT 23.5 mmol/L (22.0-26.0); BG METHEMOGLOBIN 0.3 % (0.0-1.5); BG OXYHEMOGLOBIN 98.4 % (94.0-97.0); BG PCO2 39.3 mmHg (35.0-45.0); BG PH 7.395 (7.350-7.450); BG PO2 193.5 mmHg (75.0-100.0); BG SAMPLE SITE RIGHT RADIAL; BG TOTAL HEMOGLOBIN 12.6 g/dL (12.0-18.0); BG VENT MODE MASK - NRB
[2020-10-08] VITALS (49 sets, daily range): BP systolic 121–166; BP diastolic 62–108
[2020-10-08] MEDS: IPRATROPIUM/ALBUTEROL 0.5-3(2.5)MG/3ML NEB HHN SCH ×4 (02:13→20:15)
[2020-10-08] MEDS: DILTIAZEM HCL 30MG TABLET PO SCH ×3 (05:10→22:55)
[2020-10-08 05:45] LABS: HEMATOCRIT. 37.6 % (36.0-48.0); MEAN CORPUSCULAR HEMOGLOBIN 27.4 pg (28.0-32.0); MEAN CORPUSCULAR VOLUME 85.6 fL (81.0-99.0); MEAN PLATELET VOLUME 7.6 fl (7.4-10.4); PLATELET 252 x1000/uL (130-400); RED CELL DISTRIBUTION WIDTH 16.4 % (11.6-14.6)
[2020-10-08 06:12] LABS: CHLORIDE 111 mEq/L (98-107)
[2020-10-08 07:43] LABS: PLATELET ESTIMATE NORMAL
[2020-10-08 08:18] LABS: BG CARBOXYHEMOGLOBIN 0.3 % (0.5-1.5); BG DEOXYHEMOGLOBIN 4.2 % (0.0-5.0); BG FRACTION INSPIRED OXYGEN 50; BG HCO3 ACT 22.9 mmol/L (22.0-26.0); BG METHEMOGLOBIN 0.3 % (0.0-1.5); BG OXYGEN SATURATION 95.8 % (92.0-98.5); BG OXYHEMOGLOBIN 95.2 % (94.0-97.0); BG PCO2 35.6 mmHg (35.0-45.0); BG PH 7.427 (7.350-7.450); BG PO2 80.3 mmHg (75.0-100.0); BG SAMPLE SITE RIGHT RADIAL; BG TOTAL HEMOGLOBIN 12.3 g/dL (12.0-18.0); BG VENT MODE MASK - VENTI
[2020-10-08] MEDS: FAMOTIDINE 20MG/2ML VIAL IV SCH (08:53)
[2020-10-08] MEDS: METHYLPREDNISOLONE SOD SUCC 40 MG/ML VIAL IV SCH (08:53)
[2020-10-08] MEDS: ENOXAPARIN 40MG/0.4ML SYR SUBCUT SCH (08:54)
[2020-10-08] MEDS: HYDRALAZINE 20MG/ML VIAL IV PRN (08:55)
[2020-10-08] MEDS: SODIUM CHLORIDE 0.45% 1,000 ML IV SCH ×2 (13:48→16:09)
[2020-10-09] VITALS (66 sets, daily range): BP systolic 108–178; BP diastolic 30–122
[2020-10-09] MEDS: IPRATROPIUM/ALBUTEROL 0.5-3(2.5)MG/3ML NEB HHN SCH ×5 (01:57→21:29)
[2020-10-09] MEDS: SODIUM CHLORIDE 0.45% 1,000 ML IV SCH ×3 (02:00→21:25)
[2020-10-09 05:47] LABS: HEMATOCRIT. 35.9 % (36.0-48.0); HEMOGLOBIN. 11.7 g/dL (12.0-16.0); MEAN CORPUSCULAR HEMOGLOBIN 27.6 pg (28.0-32.0); MEAN CORPUSCULAR VOLUME 85.1 fL (81.0-99.0); MEAN PLATELET VOLUME 7.7 fl (7.4-10.4); PLATELET 258 x1000/uL (130-400); RED BLOOD CELL COUNT 4.22 mill/uL (4.2-5.4); RED CELL DISTRIBUTION WIDTH 16.2 % (11.6-14.6)
[2020-10-09 05:59] LABS: CHLORIDE 112 mEq/L (98-107)
[2020-10-09] MEDS: DILTIAZEM HCL 30MG TABLET PO SCH ×3 (06:37→21:24)
[2020-10-09 09:08] LABS: BG BASE EXCESS -3.2 mmol/L (-2.0-2.0); BG CARBOXYHEMOGLOBIN 0.3 % (0.5-1.5); BG DEOXYHEMOGLOBIN 5.1 % (0.0-5.0); BG FRACTION INSPIRED OXYGEN 36; BG HCO3 ACT 19.8 mmol/L (22.0-26.0); BG OXYGEN SATURATION 94.9 % (92.0-98.5); BG OXYHEMOGLOBIN 94.6 % (94.0-97.0); BG PCO2 29.7 mmHg (35.0-45.0); BG PH 7.442 (7.350-7.450); BG PO2 73.7 mmHg (75.0-100.0); BG SAMPLE SITE RIGHT RADIAL; BG TOTAL HEMOGLOBIN 12.8 g/dL (12.0-18.0); BG VENT MODE NASAL CANNULA
[2020-10-09] MEDS: ENOXAPARIN 40MG/0.4ML SYR SUBCUT SCH (09:40)
[2020-10-09] MEDS: FAMOTIDINE 20MG/2ML VIAL IV SCH (09:42)
[2020-10-09] MEDS: METHYLPREDNISOLONE SOD SUCC 40 MG/ML VIAL IV SCH (09:42)
[2020-10-09] MEDS: HYDROCODONE/ACETAMINOPHEN 5/325MG TABLET PO PRN ×2 (11:22→13:10)
[2020-10-09 13:50] LABS: PLATELET ESTIMATE NORMAL
[2020-10-10] VITALS (12 sets, daily range): BP systolic 117–163; BP diastolic 59–99
[2020-10-10] MEDS: IPRATROPIUM/ALBUTEROL 0.5-3(2.5)MG/3ML NEB HHN SCH ×5 (02:05→20:42)
[2020-10-10] MEDS: IPRATROPIUM/ALBUTEROL 0.5-3(2.5)MG/3ML NEB NEB PRN (05:51)
[2020-10-10] MEDS: DILTIAZEM HCL 30MG TABLET PO SCH ×3 (06:04→21:52)
[2020-10-10 06:43] LABS: HEMATOCRIT. 34.5 % (36.0-48.0); HEMOGLOBIN. 11.2 g/dL (12.0-16.0); MEAN CORPUSCULAR HEMOGLOBIN 27.4 pg (28.0-32.0); MEAN CORPUSCULAR VOLUME 84.6 fL (81.0-99.0); MEAN PLATELET VOLUME 8.1 fl (7.4-10.4); PLATELET 234 x1000/uL (130-400); RED BLOOD CELL COUNT 4.07 mill/uL (4.2-5.4)
[2020-10-10 07:33] LABS: CHLORIDE 111 mEq/L (98-107)
[2020-10-10] MEDS: METHYLPREDNISOLONE SOD SUCC 40 MG/ML VIAL IV SCH (08:31)
[2020-10-10] MEDS: FAMOTIDINE 20MG/2ML VIAL IV SCH (08:31)
[2020-10-10] MEDS: ENOXAPARIN 40MG/0.4ML SYR SUBCUT SCH (08:32)
[2020-10-10] MEDS: SODIUM CHLORIDE 0.45% 1,000 ML IV SCH ×2 (10:26→23:26)
[2020-10-10] MEDS ORDERED: HYDROCODONE/ACETAMINOPHEN 5/325MG TABLET PO PRN (11:00)
[2020-10-10 13:53] LABS: PLATELET ESTIMATE NORMAL
[2020-10-10] MEDS: ENOXAPARIN 30MG/0.3ML SYR SUBCUT SCH (21:51)
[2020-10-11] VITALS (14 sets, daily range): BP systolic 136–185; BP diastolic 51–92
[2020-10-11] MEDS: IPRATROPIUM/ALBUTEROL 0.5-3(2.5)MG/3ML NEB HHN SCH ×5 (01:05→21:13)
[2020-10-11] MEDS: IPRATROPIUM/ALBUTEROL 0.5-3(2.5)MG/3ML NEB NEB PRN (04:19)
[2020-10-11 05:43] LABS: HEMATOCRIT. 33.8 % (36.0-48.0); HEMOGLOBIN. 10.8 g/dL (12.0-16.0); MEAN CORPUSCULAR HEMOGLOBIN 27.5 pg (28.0-32.0); MEAN CORPUSCULAR VOLUME 85.9 fL (81.0-99.0); MEAN PLATELET VOLUME 7.9 fl (7.4-10.4); PLATELET 203 x1000/uL (130-400); RED BLOOD CELL COUNT 3.94 mill/uL (4.2-5.4); RED CELL DISTRIBUTION WIDTH 16.3 % (11.6-14.6)
[2020-10-11 05:44] LABS: CHLORIDE 112 mEq/L (98-107)
[2020-10-11] MEDS: DILTIAZEM HCL 30MG TABLET PO SCH ×3 (06:38→21:50)
[2020-10-11] MEDS: FAMOTIDINE 20MG/2ML VIAL IV SCH (08:55)
[2020-10-11] MEDS: METHYLPREDNISOLONE SOD SUCC 40 MG/ML VIAL IV SCH (08:55)
[2020-10-11] MEDS: ENOXAPARIN 30MG/0.3ML SYR SUBCUT SCH (08:55)
[2020-10-11 11:41] LABS: PLATELET ESTIMATE NORMAL
[2020-10-11] MEDS ORDERED: MULTIVITAMINS,THER W-MINERALS TABLET PO SCH (14:00)
[2020-10-11] MEDS: SODIUM CHLORIDE 0.45% 1,000 ML IV SCH (15:49)
[2020-10-11] MEDS: CLONIDINE 0.1MG TABLET PO PRN (21:32)
== END 2020-10-11 22:47 | DRG 208 ==
LOC: ER 10:49 → MICUSO 13:03 → EDBEDREQ 13:06 → EDBEDREQTM 13:06 → EDBEDREQSVC 13:06 → CANRESERV 19:54 → ENRESERV 19:54 → CVICU 09-28 01:52 → 5EST 09-28 23:30 → CVICU 10-02 13:46 → 3WST 10-09 22:20
PROVIDERS: ADMIT Internal Medicine; ATTEND Internal Medicine
PROC: 0W9930Z Drainage of Right Pleural Cavity with Drainage Device, Percutaneous Approach (ICD-10-PCS; 2020-09-27)
PROC: 5A09357 Assistance with Respiratory Ventilation, Less than 24 Consecutive Hours, Continuous Positive Airway Pressure (ICD-10-PCS; 2020-09-27)
PROC: 02HV33Z Insertion of Infusion Device into Superior Vena Cava, Percutaneous Approach (ICD-10-PCS; 2020-10-02)
PROC: B548ZZA Ultrasonography of Superior Vena Cava, Guidance (ICD-10-PCS; 2020-10-02)
PROC: 5A1945Z Respiratory Ventilation, 24-96 Consecutive Hours (ICD-10-PCS; principal; 2020-10-03)
PROC: 0BH17EZ Insertion of Endotracheal Airway into Trachea, Via Natural or Artificial Opening (ICD-10-PCS; 2020-10-03)
DX: J93.9 Pneumothorax, unspecified (principal); E87.2 Acidosis; M62.82 Rhabdomyolysis; N17.9 Acute kidney failure, unspecified; R06.03 Acute respiratory distress; J93.82 Other air leak; I71.2 Thoracic aortic aneurysm, without rupture; R73.9 Hyperglycemia, unspecified; Z20.822 Contact with and (suspected) exposure to COVID-19; R91.1 Solitary pulmonary nodule; D72.829 Elevated white blood cell count, unspecified; E86.0 Dehydration; I10 Essential (primary) hypertension; J98.2 Interstitial emphysema; M10.9 Gout, unspecified; Z87.891 Personal history of nicotine dependence; Z99.81 Dependence on supplemental oxygen; Z88.8 Allergy status to other drugs, medicaments and biological substances
CPT/HCPCS: 31500; 36415; 36600; 71045; 71250; 71260; 76937; 80048; 80053; 80061; 81003; 82375; 82550; 82553; 82805; 82962; 83605; 83735; 83880; 84132; 84439; 84443; 84478; 84484; 85025; 87070; 87426; 92610; 93005; 93306; 93970; 94003; 94640; 94660; 97162; 97164; 97166; 97530; 99291; A6261; C1725; J0330; J0360; J0456; J0696; J1200; J1650; J2250; J2270; J2405; J2543; J2704; J2920; J2930; J3010; J3475; J3490; J7030; J7050; J7060; Q9967; U0003; A4315